=== PATIENT | female | born 1985 | race Caucasian/White ===

== ENCOUNTER 2020-10-14 06:30 | Emergency (ER) | payer SELFPAY ==
[~2020-10-14] VITALS: Ht 157.5 cm; Wt 104.3 kg
[2020-10-14 06:42] VITALS: BP 100/65
--- NOTE | 2020-10-14 06:42 | NUR ---
TO BED # 05 AMBULATORY
--- NOTE | 2020-10-14 06:48 | NUR ---
pt ambulated to bed 5 with steady gait
--- NOTE | 2020-10-14 06:50 | NUR ---
PT CONNECTED TO THE [employer]. SAO2@97% RA. BED IS LOCKED AND IN LOWEST POSITION. SIDE RAILSX1. NO NEW ORDERS AT THIS TIME.
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
--- NOTE | 2020-10-14 07:12 | NUR ---
GAVE REPORT TO CR PÉREZ FOR TRANSFER OF CARE.
--- NOTE | 2020-10-14 07:13 | NUR ---
RECEIVED REPORT FROM CR SILVA. TRANSFER OF CARE AT THIS TIME.
--- NOTE | 2020-10-14 07:24 | NUR ---
DR. CHAUDHARY AT PT BEDSIDE. PER MD ORDER, BREATHING TX BY RT.
[2020-10-14] MEDS ORDERED: ONDANSETRON 4 MG ODT PO ONE (07:25)
[2020-10-14] MEDS ORDERED: KETOROLAC 60 MG/2 ML VIAL IM ONE (07:25)
[2020-10-14] MEDS ORDERED: ALBUTEROL SULFATE/IPRATROPIU 3 ML SOL IH ONE (07:25)
[2020-10-14] MEDS ORDERED: ALBUTEROL 0.083% 2.5 MG/3 ML NEBU INH ONE (07:25)
--- NOTE | 2020-10-14 07:32 | NUR ---
RT AT PT BEDSIDE.
--- NOTE | 2020-10-14 07:40 | NUR ---
[facility]ED [facility] AND SPOKE WITH YARI. SHE RECOMMENDED A BREATHING TREATMENT, CHEST XRAY, AND SUPPORTIVE CARE.
--- NOTE | 2020-10-14 08:18 | NUR ---
ELISA RN CALLED RT, THEY DID NOT ADMINISTER ALBUTEROL. PER DR CHAUDHARY, PT IS READY FOR DISCHARGE, MEDICATION NOT NEEDED AT THIS TIME. RT NOTIFIED.
[2020-10-14 08:29] VITALS: BP 100/65
--- NOTE | 2020-10-14 08:30 | NUR ---
Patient discharged with v/s stable. Written and verbal after care instructions given and explained. Patient alert, oriented and verbalized understanding of instructions. Ambulatory with steady gait. All questions addressed prior to discharge. ID band removed. Patient advised to follow up with PMD. Rx of prednisone 20mg tab, 3 tabs daily, zofran 8mg PO tab q8hrs,albuterol 90mcg/actuation inhalation aersol 2 puffs q4hrs PRN, motrin 800 mg PO tab TID given. Patient educated on indication of medication including possible reaction and side effects. Opportunity to ask questions provided and answered.
== END 2020-10-14 08:36 | disposition home or self-care (01) ==
LOC: MED 06:30
DX: T59.91XA Toxic effect of unspecified gases, fumes and vapors, accidental (unintentional), initial encounter (principal); K92.0 Hematemesis; R07.9 Chest pain, unspecified; J44.9 Chronic obstructive pulmonary disease, unspecified; F17.210 Nicotine dependence, cigarettes, uncomplicated; Y92.89 Other specified places as the place of occurrence of the external cause
CPT/HCPCS: 94640; 96372; 99283; J1885; Q0162